=== PATIENT | female | born 1980 | race Caucasian/White ===

== ENCOUNTER 2017-02-26 10:56 | Emergency (ER) | payer SELFPAY ==
[2017-02-26 11:06] VITALS: BP 136/78
[2017-02-26] MEDS ORDERED: PENICILLIN V POTASSIUM 500 MG TABLET PO ONE (11:17)
[2017-02-26] MEDS ORDERED: LIDOCAINE 2% VISCOUS SOLN 20 ML UDCUP PO ONE (11:17)
[2017-02-26] MEDS ORDERED: IBUPROFEN 600 MG TABLET PO ONE (11:17)
--- NOTE | 2017-02-26 11:23 | ER Document Report ---
ED Oral Problem - General Chief Complaint: Toothache Stated Complaint: TOOTH PAIN Time Seen by Provider: 02/26/17 11:10 Mode of Arrival: Ambulatory Information source: Patient Notes: 36-year-old female presents to ED for complaint of dental pain and swelling for times a week got worse over the last 2 days. She does have a tooth #11 that appears to have had the Fall off. The gum is very red and swollen and inflamed. Will treat with Penicillin VK ibuprofen and viscous lidocaine for pain. TRAVEL OUTSIDE OF THE [place] IN LAST 30 DAYS: No - HPI Patient complains to provider of: Toothache Onset: Other Onset: Gradual - 2 weeks worse the last 2 days Quality of pain: Sharp, Throbbing Severity: Moderate Pain Level: 4 Associated symptoms: Toothache Worsened by: Cold Relieved by: Nothing Similar symptoms previously: Yes Recently seen / treated by doctor/dentist: No - Related Data Allergies/Adverse Reactions: No Known Allergies Allergy (Verified 02/26/17 10:56) Past Medical History - General Information source: Patient - Social History Smoking Status: Current Every Day Smoker Cigarette use (# per day): Yes - One half pack per day Chew tobacco use (# tins/day): No Smoking Education Provided: Yes - Less than 2 minutes Frequency of alcohol use: Rare Drug Abuse: None 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 denies: Arthritis, CAD, COPD, CVA, DM, Hyperlipidemia, Hypertension, Thyroid Disfunction Patient has suicidal ideation: No Patient has homicidal ideation: No - Past Medical History Cardiac Medical History: Reports: Hx Coronary Artery Disease Pulmonary Medical History: Reports: None EENT Medical History: Reports: None Neurological Medical History: Reports: None Endocrine Medical History: Reports: None Renal/ Medical History: Reports: None Malignancy Medical History: Reports: None GI Medical History: Reports: None Musculoskeltal Medical History: Reports Hx Musculoskeletal Trauma Skin Medical History: Reports None Psychiatric Medical History: Reports: Hx Attention Deficit Hyperactivity Disorder, Hx Bipolar Disorder Traumatic Medical History: Reports: Hx Fractures - Right wrist, Hx Traumatic Brain Injury Past Surgical History: Reports: Hx Neurologic Surgery - Brain surgery due to traumatic brain injury, Hx Orthopedic Surgery - ORIF right wrist - Immunizations Immunizations up to date: Yes Hx Diphtheria, Pertussis, Tetanus Vaccination: Yes Review of Systems - Review of Systems Constitutional: No symptoms reported EENT: Dental problem Cardiovascular: No symptoms reported Respiratory: No symptoms reported Gastrointestinal: No symptoms reported Genitourinary: No symptoms reported Female Genitourinary: No symptoms reported Musculoskeletal: No symptoms reported Skin: No symptoms reported Hematologic/Lymphatic: No symptoms reported Neurological/Psychological: No symptoms reported -: Yes All other systems reviewed and negative Physical Exam - Vital signs Vitals: Temp Pulse Resp BP Pulse Ox 97.9 F 98 16 136/78 H 99 02/26/17 11:05 02/26/17 11:05 02/26/17 11:05 02/26/17 11:05 02/26/17 11:05 Interpretation: Normal - General General appearance: Appears well, Alert - HEENT Head: Normocephalic, Atraumatic Eyes: Normal Pupils: PERRL Ears: Normal External canal: Normal Tympanic membrane: Normal Sinus: Normal Nasal: Normal Mouth/Lips: Caries Mucous membranes: Normal Teeth diagram: 1 - Tooth #11 appears to have the Fallen off and now has an exposed post with redness inflammation and pain surrounding it. Pharynx: Normal Neck: Anterior cervical chain - Respiratory Respiratory status: No respiratory distress Chest status: Nontender Breath sounds: Normal Chest palpation: Normal - Cardiovascular Rhythm: Regular Heart sounds: Normal auscultation Murmur: No - Abdominal Inspection: Normal Distension: No distension Bowel sounds: Normal Tenderness: Nontender Organomegaly: No organomegaly - Back Back: Normal, Nontender - Extremities General upper extremity: Normal inspection, Nontender, Normal color, Normal ROM , Normal temperature General lower extremity: Normal inspection, Nontender, Normal color, Normal ROM , Normal temperature, Normal weight bearing. No: Kai's sign - Neurological Neuro grossly intact: Yes Cognition: Normal Orientation: AAOx4 Yaya Coma Scale Eye Opening: Spontaneous Yaya Coma Scale Verbal: Oriented Yaya Coma Scale Motor: Obeys Commands [place] Coma Scale Total: 15 Speech: Normal Motor strength normal: LUE, RUE, LLE, RLE Sensory: Normal - Psychological Associated symptoms: Normal affect, Normal mood - Skin Skin Temperature: Warm Skin Moisture: Dry Skin Color: Normal Course - Re-evaluation Re-evalutation: 02/26/17 11:32 Patient treated with Penicillin VK lidocaine and ibuprofen. Sent home with prescription for Penicillin VK. And instructions to follow-up with primary doctor and dental clinic - Vital Signs Vital signs: Temp Pulse Resp BP Pulse Ox 97.9 F 98 16 136/78 H 99 02/26/17 11:05 02/26/17 11:05 02/26/17 11:05 02/26/17 11:05 02/26/17 11:05 Discharge - Discharge Clinical Impression: Pain due to dental caries Condition: Stable Disposition: HOME, SELF-CARE Additional Instructions: TOOTHACHE: Your pain is due to dental decay. The tooth must be repaired in order for you to feel better. You will, therefore, be referred to a dentist. We do not have dentists on the staff at [facility]. Severe swelling or drainage around a tooth usually means a dental abscess. This also requires evaluation and treatment by the dentist, but antibiotics may be prescribed while awaiting dental treatment. You should be rechecked immediately if you develop major swelling of the face, increasing pain, a lump in the jaw or gums, headache, difficulty swallowing, or fever. PENICILLIN V K: You have been given a prescription for Penicillin VK. Your physician has determined that this is the best antibiotic for your condition. Pen VK can be taken with meals, however more of the antibiotic gets into the bloodstream if it's taken on an empty stomach. Penicillin usually has no side effects. However, allergy to penicillins is common. If you have had an allergic reaction to any drug of the penicillin family, you should never take any other penicillin. Notify your doctor at once if you develop hives, itching, swelling, faintness, or shortness of breath. FOLLOW-UP CARE: You have been referred for follow-up care to the dentists listed below. Call the dentists office for an appointment as you were instructed or within the next two days. If you experience worsening or a significant change in your symptoms, notify the physician immediately or return to the Emergency Department at any time for re-evaluation. [facility] [address] [place], [place] [phone] not open until mar 17 [facility] [address] [place] [address] [facility] [address] [facility]ically [facility] [address] [facility] [email or web address] [address] [place] [address] Friday- 8:00am to 5:00 pm Will see patients from other [facility]. Charges based on income and family size and accepts Medicare, Medicaid, and Insurances Will pull molars [facility] [id number] Hours of Operation 8:00 am - 4:30 pm weekdays The following dental offices accept Medicaid: [facility] Dr. Guerra Dr. aJffe Dr. Camarena Dr. Kwon Marquez Hubbard Lutsavage, and [facility] Dr. Waldrop ([place]) Dr. Ren ([place]) [facility] Drs. Blackwood and Rashaun ([place]) Dr. Givens ([place]) [facility] Dr. Gallegos ([place]) Drs. Preston and ([place]) Medicaid Care Line Prescriptions: Penicillin V Potassium [Penicillin Vk 500 mg Tablet] 500 mg PO BID #20 tablet Forms: Elevated Blood Pressure, Smoking Cessation Education
== END 2017-02-26 11:34 | disposition home or self-care (01) ==
LOC: ER 10:56
DX: K02.9 Dental caries, unspecified (principal); K05.10 Chronic gingivitis, plaque induced; K08.89 Other specified disorders of teeth and supporting structures; I25.10 Atherosclerotic heart disease of native coronary artery without angina pectoris; F17.210 Nicotine dependence, cigarettes, uncomplicated; Z71.6 Tobacco abuse counseling
CPT/HCPCS: 99282; J3490

== ENCOUNTER 2017-07-27 22:04 | Emergency (ER) | payer SELFPAY ==
--- NOTE | 2017-07-27 23:33 | RADIOLOGY REPORT (SQ) ---
EXAM DESCRIPTION: TIBIA FIBULA RIGHT COMPLETED DATE/TIME: 07/27/2017 11:03 pm REASON FOR STUDY: FALL WITH INJURY COMPARISON: None. NUMBER OF VIEWS: Two views. TECHNIQUE: Two radiographic images acquired of the right tibia and fibula to include the knee and an kle in at least one projection. LIMITATIONS: None. FINDINGS: MINERALIZATION: Normal. BONES: Nondisplaced right medial malleolar fracture. No dislocation. No worrisome bone lesions. SOFT TISSUES: No radiopaque foreign body. OTHER: No other significant finding. IMPRESSION: Nondisplaced right medial malleolar fracture. TECHNICAL DOCUMENTATION: JOB ID: [id number] [place]-72 2010 [employer]- All Rights Reserved Reading location - IP/workstation name: [email or web address]
--- NOTE | 2017-07-27 23:35 | RADIOLOGY REPORT (SQ) ---
EXAM DESCRIPTION: FOOT RIGHT COMPLETE COMPLETED DATE/TIME: 07/27/2017 11:03 pm REASON FOR STUDY: FALL WITH INJURY COMPARISON: None. NUMBER OF VIEWS: Three views. TECHNIQUE: AP, lateral and oblique radiographic images acquired of the right foot. LIMITATIONS: None. FINDINGS: MINERALIZATION: Normal. BONES: Nondisplaced right medial malleolar fracture. No other fracture or dislocation. No worrisome bone lesions. JOINTS: No effusions. SOFT TISSUES: Mild soft tissue swelling. No foreign body. OTHER: No other significant finding. IMPRESSION: Nondisplaced right medial malleolar fracture. TECHNICAL DOCUMENTATION: JOB ID: [id number] [place]-72 2010 [employer]- All Rights Reserved Reading location - IP/workstation name: [email or web address]
[2017-07-27] MEDS ORDERED: HYDROCODONE/ACETAMINOPHEN 5-325 MG (6 TAB/ER DISP) PO PRN (23:55)
--- NOTE | 2017-07-28 00:02 | ER Document Report ---
ED General - General Chief Complaint: Ankle Pain Stated Complaint: RIGHT ANKLE PAIN Time Seen by Provider: 07/27/17 22:40 Mode of Arrival: Wheelchair Information source: Patient TRAVEL OUTSIDE OF THE [place] IN LAST 30 DAYS: No - HPI Notes: 37-year-old female presents to the emergency department with report that 3 days ago she fell down her steps injuring her right ankle and foot and presents now with complaint pain and swelling with difficulty bearing weight. The patient denies any numbness or paresthesia. She reports no head injury or neck pain or back pain. She denies any other musculoskeletal complaint or injury. - Related Data Allergies/Adverse Reactions: No Known Allergies Allergy (Verified 07/27/17 22:16) Past Medical History - General Information source: Patient - Social History Smoking Status: Current Every Day Smoker Frequency of alcohol use: Occasional Drug Abuse: None Lives with: Friend Family History: Malignancy. denies: Arthritis, CAD, COPD, CVA, DM, Hyperlipidemia, Hypertension, Thyroid Disfunction Patient has suicidal ideation: No Patient has homicidal ideation: No - Past Medical History Cardiac Medical History: Reports: Hx Coronary Artery Disease Renal/ Medical History: Denies: Hx Peritoneal Dialysis Musculoskeltal Medical History: Reports Hx Musculoskeletal Trauma Psychiatric Medical History: Reports: Hx Attention Deficit Hyperactivity Disorder, Hx Bipolar Disorder Traumatic Medical History: Reports: Hx Fractures - Right wrist, Hx Traumatic Brain Injury Past Surgical History: Reports: Hx Neurologic Surgery - Brain surgery due to traumatic brain injury, Hx Orthopedic Surgery - ORIF right wrist - Immunizations Immunizations up to date: Yes Hx Diphtheria, Pertussis, Tetanus Vaccination: Yes Review of Systems - Review of Systems Notes: REVIEW OF SYSTEMS: CONSTITUTIONAL : Denies fever, chills, or sweats. Denies recent illness. EENT: Denies eye, ear, throat, or mouth pain or symptoms. Denies nasal or sinus congestion or discharge. Denies throat, tongue, or mouth swelling or difficulty swallowing. CARDIOVASCULAR: Denies chest pain. Denies palpitations or racing or irregular heart beat. Denies ankle edema. RESPIRATORY: Denies cough, cold, or chest congestion. Denies shortness of breath, difficulty breathing, or wheezing. GASTROINTESTINAL: Denies abdominal pain or distention. Denies nausea, vomiting , or diarrhea. Denies blood in vomitus, stools, or per rectum. Denies black, tarry stools. Denies constipation. GENITOURINARY: Denies difficulty urinating, painful urination, burning, frequency, blood in urine, or discharge. FEMALE GENITOURINARY: Denies vaginal bleeding, heavy or abnormal periods, irregular periods. Denies vaginal discharge or odor. MUSCULOSKELETAL: Denies back or neck pain or stiffness. SKIN: Denies rash, lesions or sores. HEMATOLOGIC : Denies easy bruising or bleeding. LYMPHATIC: Denies swollen, enlarged glands. NEUROLOGICAL: Denies confusion or altered mental status. Denies passing out or loss of consciousness. Denies dizziness or lightheadedness. Denies headache. Denies weakness or paralysis or loss of use of either side. Denies problems with gait or speech. Denies sensory loss, numbness, or tingling. Denies seizures. PSYCHIATRIC: Denies anxiety or stress. Denies depression, suicidal ideation, or homicidal ideation. ALL OTHER SYSTEMS REVIEWED AND NEGATIVE. Dictation was performed using 8hands voice recognition software Physical Exam - Vital signs Vitals: Temp Pulse Resp BP Pulse Ox 97.8 F 88 18 130/71 H 99 07/27/17 22:30 07/27/17 22:30 07/27/17 22:30 07/27/17 22:30 07/27/17 22:30 - Notes Notes: PHYSICAL EXAMINATION: GENERAL: Well-appearing, well-nourished and in no acute distress. HEAD: Atraumatic, normocephalic. EYES: Pupils equal round and reactive to light, extraocular movements intact, conjunctiva are normal. ENT: Nares patent, oropharynx clear without exudates. Moist mucous membranes. NECK: Normal range of motion, supple without lymphadenopathy LUNGS: Breath sounds clear to auscultation bilaterally and equal. No wheezes rales or rhonchi. HEART: Regular rate and rhythm without murmurs ABDOMEN: Soft, nontender, nondistended abdomen. No guarding, no rebound. No masses appreciated. Female : deferred Musculoskeletal: Pain over the right mid tib-fib region extending down to the right foot with contusion and bruising noted over the medial malleolus and to the medial midfoot region. No gross crepitance or bony deformity. The patient has no proximal erythema or adenopathy. The knee is nonfocal. The patient distally has good sensation and capillary refill and pulses. NEUROLOGICAL: Cranial nerves grossly intact. Normal speech, normal gait. Normal sensory, motor exams PSYCH: Normal mood, normal affect. SKIN: Warm, Dry, normal turgor, no rashes or lesions noted. Course - Re-evaluation Re-evalutation: 07/28/17 00:00 X-ray showed a minimally displaced medial malleolus fracture. No other acute injury noted. Patient was advised she needed to follow-up with orthopedics tomorrow and that she may need a surgical intervention. Pt was given R posterior and stirrup splint and crutches. Pt neurovasc intact following splint placement. 07/28/17 00:18 - Vital Signs Vital signs: Temp Pulse Resp BP Pulse Ox 97.8 F 88 18 130/71 H 99 07/27/17 22:30 07/27/17 22:30 07/27/17 22:30 07/27/17 22:30 07/27/17 22:30 Discharge - Discharge Clinical Impression: Accidental fall Qualifiers: Encounter type: initial encounter Qualified Code(s): W19.XXXA - Unspecified fall, initial encounter Ankle fracture, right Qualifiers: Encounter type: initial encounter Fracture type: closed Qualified Code(s): S82.891A - Other fracture of right lower leg, initial encounter for closed fracture Condition: Stable Disposition: HOME, SELF-CARE Instructions: Ankle Stirrup Splint ([facility]) Additional Instructions: You have fracture the medial malleolus of the ankle, corresponding to the distal tibia. You need to follow-up with orthopedics tomorrow for evaluation. Keep the leg elevated. Prescriptions: Hydrocodone/Acetaminophen [Davey 5-325 Tablet] 1 each PO Q4HP PRN #25 tablet PRN Reason: Referrals: RUDY TIERNEY DO [ACTIVE STAFF] - 07/28/17
[2017-07-28 00:36] VITALS: BP 127/71
== END 2017-07-28 00:34 | disposition home or self-care (01) ==
LOC: ER 22:04
DX: S82.891A Other fracture of right lower leg, initial encounter for closed fracture (principal); M25.571 Pain in right ankle and joints of right foot; M79.671 Pain in right foot; W10.9XXA Fall (on) (from) unspecified stairs and steps, initial encounter; F17.200 Nicotine dependence, unspecified, uncomplicated; I25.10 Atherosclerotic heart disease of native coronary artery without angina pectoris
CPT/HCPCS: 99283

== ENCOUNTER → 2018-07-15 | Outpatient (CLI) | payer SELFPAY ==
--- NOTE | 2018-07-15 14:52 | RADIOLOGY REPORT (SQ) ---
EXAM DESCRIPTION: U/S OB 14+ TRNABD 1GES W/O DOP COMPLETED DATE/TIME: 07/15/2018 2:10 pm REASON FOR STUDY: ENCTR FOR SUPERVISION OF OTHER NORMAL 2ND TRIMESTER (Z34.82) Z34.82 ENC OUNTER FOR SUPRVSN OF NORMAL , SECOND TRI COMPARISON: None. TECHNIQUE: Static and Dynamic grayscale imaging performed of gravid uterus using transabdominal appr oach. Additional selected color Doppler and spectral images recorded. All stored on PACS. LIMITATIONS: None. FINDINGS: FETUSES SEEN:1 EGA: 24 weeks 0 days Calculated using BPD,FL,HC,AC documented on images. ROSARIO: 11/04/2018 LVP: 10.2 cm PLACENTA: Posterior. Low lying placenta with tip of the placenta 9 mm from cervix. PRESENTATION: Vertex ANATOMY: HEART RATE: 144 beats per minute. FOUR CHAMBER HEART: Visualized. THREE VESSEL CORD: Yes. CORD INSERTION: Visualized. KIDNEYS AND BLADDER: Visualized. Appear normal. STOMACH: Visualized. Appears normal. SPINE: Normal as visualized. BRAIN AND LATERAL VENTRICLES: Visualized. Appear normal. OTHER: No other significant finding. MATERNAL ADNEXA: Nonvisualized ovaries. CERVICAL LENGTH: 3.7 Closed. OTHER: No other significant finding. IMPRESSION: 1. Living intrauterine with estimated gestational age of 24 weeks. 2. Low-lying placenta with the placenta measuring 9 mm from the cervical os. 3. LVP of 10.2 cm suggestive of polyhydramnios. Consider follow-up TO when feasible. 4. Volume no additional visualized anomalies. Trimester of : Second trimester - 13 weeks 1 day to 27 weeks 6 days. TECHNICAL DOCUMENTATION: JOB ID: [id number] [email or web address]- All Rights Reserved Reading location - IP/workstation name: [email or web address]
== END ==
LOC: RAD 12:50
PROVIDERS: ATTEND Midwife
DX: Z34.82 Encounter for supervision of other normal pregnancy, second trimester (principal)
CPT/HCPCS: 76805

== ENCOUNTER 2018-10-21 04:04 | Outpatient (CLI) | payer MEDICAID ==
[2018-10-21 04:36] LABS: APPEARANCE,URINE CLEAR; BILIRUBIN,URINE NEGATIVE (NEGATIVE); COLOR,URINE YELLOW; GLUCOSE, URINE NEGATIVE (NEGATIVE); KETONES,URINE NEGATIVE (NEGATIVE); LEUKOCYTE ESTERASE,URINE TRACE (NEGATIVE); NITRITE,URINE NEGATIVE (NEGATIVE); PROTEIN,URINE NEGATIVE (NEGATIVE); UROBILINOGEN,URINE NEGATIVE mg/dL (<2.0)
[2018-10-21 04:54] LABS: URINE BARBITURATES SCREEN NEGATIVE; URINE BENZODIAZEPINES SCREEN NEGATIVE; URINE COCAINE SCREEN NEGATIVE; URINE MARIJUANA (THC) SCREEN NEGATIVE; URINE METHADONE SCREEN NEGATIVE; URINE PHENCYCLIDINE SCREEN NEGATIVE
[2018-10-21 04:56] LABS: URINE AMPHETAMINES SCREEN UNCONFIRMED POSITIVE
--- NOTE | 2018-10-21 05:55 | Non Stress Test Report ---
Non Stress Test Datetime Report Generated by CPN: 10/21/2018 05:55 DEMOGRAPHIC EGA NST: 38.6 INDICATION Indication for Study: Ordered by Provider MONITORING Monitor Explained: Monitor Explained; Test Explained; Patient Verbalized Understanding Time on Monitor: 10/21/2018 04:22 Time off Monitor: 10/21/2018 05:52 NST Duration: 90 NST INTERVENTIONS NST Interventions: PO Hydration Physician Notified NST: Dr. Zayas BABY A: [id number] BABY A Movement : Present Contraction Frequency : irritibility FHR Baseline : 140 Accelerations : 15X15 Decelerations : None Variability : Moderate 6-25bpm NST Review: Meets Criteria for Reactive NST NST Review and Verified By : john Bo RN NST Results: Non-Reactive NST REPORT Report Trigger: Send Report
== END 2018-10-21 06:01 | disposition home or self-care (01) ==
LOC: LC 04:04
PROVIDERS: ATTEND Obstetrics & Gynecology
PROC: 4A1HXCZ Monitoring of Products of Conception, Cardiac Rate, External Approach (ICD-10-PCS; principal; 2018-10-21)
DX: O47.1 False labor at or after 37 completed weeks of gestation (principal); O09.523 Supervision of elderly multigravida, third trimester; F17.210 Nicotine dependence, cigarettes, uncomplicated; Z3A.38 38 weeks gestation of pregnancy
CPT/HCPCS: 59025; 36415; 81005; 80307 ×2; 84112; G0480

== ENCOUNTER 2018-11-02 21:19 | Outpatient (CLI) | payer OTHER, MEDICAID ==
[2018-11-02 22:08] LABS: APPEARANCE,URINE CLEAR; BILIRUBIN,URINE NEGATIVE (NEGATIVE); COLOR,URINE AMBER; GLUCOSE, URINE NEGATIVE (NEGATIVE); KETONES,URINE NEGATIVE (NEGATIVE); LEUKOCYTE ESTERASE,URINE SMALL (NEGATIVE); NITRITE,URINE NEGATIVE (NEGATIVE); PROTEIN,URINE 30 mg/dL (NEGATIVE); URINE SPECIFIC GRAVITY 1.027
[2018-11-02 22:36] LABS: URINE BARBITURATES SCREEN NEGATIVE; URINE BENZODIAZEPINES SCREEN NEGATIVE; URINE COCAINE SCREEN NEGATIVE; URINE MARIJUANA (THC) SCREEN NEGATIVE; URINE METHADONE SCREEN NEGATIVE; URINE PHENCYCLIDINE SCREEN NEGATIVE
--- NOTE | 2018-11-03 00:47 | Non Stress Test Report ---
Non Stress Test Datetime Report Generated by CPN: 11/03/2018 00:47 DEMOGRAPHIC EGA NST: 40.4 INDICATION Indication for Study: Ordered by Provider VITAL SIGNS Pulse - NST: 87 RESP - NST: 17 NBPSYS NST: 128 NBPDIA NST: 61 MONITORING Monitor Explained: Monitor Explained; Test Explained; Patient Verbalized Understanding Time on Monitor: 11/02/2018 21:39 Time off Monitor: 11/03/2018 00:10 NST Duration: 151 NST INTERVENTIONS NST Interventions: PO Hydration; IV Fluids Physician Notified NST: Dr. Zayas BABY A: [id number] BABY A Movement : Present Contraction Frequency : 5-7 FHR Baseline : 140 Accelerations : 15X15 Decelerations : None Variability : Moderate 6-25bpm NST Review: Meets Criteria for Reactive NST NST Review and Verified By : Arash Cisse RN NST Results: Reactive NST REPORT Report Trigger: Send Report
== END 2018-11-03 00:25 | disposition home or self-care (01) ==
LOC: LC 21:19
PROVIDERS: ATTEND Obstetrics & Gynecology
PROC: 4A1HXCZ Monitoring of Products of Conception, Cardiac Rate, External Approach (ICD-10-PCS; principal; 2018-11-02)
DX: O47.1 False labor at or after 37 completed weeks of gestation (principal); O48.0 Post-term pregnancy; O99.333 Smoking (tobacco) complicating pregnancy, third trimester; F17.210 Nicotine dependence, cigarettes, uncomplicated; O09.523 Supervision of elderly multigravida, third trimester; Z3A.40 40 weeks gestation of pregnancy
CPT/HCPCS: 59025; 36415; 81005; 80307 ×2; G0480

== ENCOUNTER 2018-11-04 06:02 | Outpatient (CLI) | payer OTHER, MEDICAID ==
--- NOTE | 2018-11-04 07:44 | Non Stress Test Report ---
Non Stress Test Datetime Report Generated by CPN: 11/04/2018 07:44 DEMOGRAPHIC EGA NST: 40.6 INDICATION Indication for Study: Ordered by Provider MONITORING Monitor Explained: Monitor Explained; Test Explained; Patient Verbalized Understanding Time on Monitor: 11/04/2018 06:50 Time off Monitor: 11/04/2018 07:39 NST Duration: 49 NST INTERVENTIONS NST Interventions: PO Hydration Physician Notified NST: Dr. Grimaldo BABY A: [id number] BABY A Movement : Present Contraction Frequency : Irreg FHR Baseline : 135 Accelerations : 15X15 Variability : Moderate 6-25bpm NST Review: Meets Criteria for Reactive NST NST Review and Verified By : Vargas Cisse, RN NST Results: Reactive NST REPORT Report Trigger: Send Report
[2018-11-04 08:07] LABS: APPEARANCE,URINE CLEAR; BILIRUBIN,URINE NEGATIVE (NEGATIVE); COLOR,URINE YELLOW; GLUCOSE, URINE NEGATIVE (NEGATIVE); KETONES,URINE NEGATIVE (NEGATIVE); LEUKOCYTE ESTERASE,URINE NEGATIVE (NEGATIVE); NITRITE,URINE NEGATIVE (NEGATIVE); PROTEIN,URINE NEGATIVE (NEGATIVE); URINE SPECIFIC GRAVITY 1.015
[2018-11-04 08:26] LABS: URINE BARBITURATES SCREEN NEGATIVE; URINE BENZODIAZEPINES SCREEN NEGATIVE; URINE COCAINE SCREEN NEGATIVE; URINE MARIJUANA (THC) SCREEN NEGATIVE; URINE METHADONE SCREEN NEGATIVE; URINE PHENCYCLIDINE SCREEN NEGATIVE
[2018-11-04 08:34] LABS: URINE AMPHETAMINES SCREEN UNCONFIRMED POSITIVE
== END 2018-11-04 07:58 | disposition home or self-care (01) ==
LOC: LC 06:02
PROVIDERS: ATTEND Student in an Organized Health Care Education/Training Program
PROC: 4A1HXCZ Monitoring of Products of Conception, Cardiac Rate, External Approach (ICD-10-PCS; principal; 2018-11-04)
DX: O47.1 False labor at or after 37 completed weeks of gestation (principal); O09.523 Supervision of elderly multigravida, third trimester; O48.0 Post-term pregnancy; O99.333 Smoking (tobacco) complicating pregnancy, third trimester; F17.210 Nicotine dependence, cigarettes, uncomplicated; Z3A.40 40 weeks gestation of pregnancy
CPT/HCPCS: 59025; 80307; 81005

== ENCOUNTER 2018-11-05 06:34 | Inpatient (IN) | payer OTHER, MEDICAID ==
[2018-11-05] MEDS ORDERED: PENICILLIN G-K 5 MILLION UNIT VIAL ONE ×2 (06:57→13:26)
[2018-11-05] MEDS ORDERED: OXYTOCIN/NORMAL SALINE 20 UNIT/1,000 ML RTUINJ ONE ×2 (07:01→16:17)
[2018-11-05] MEDS ORDERED: OXYTOCIN 10 UNIT/ML VIAL ONE (07:17)
[2018-11-05] MEDS ORDERED: MISOPROSTOL 0.2 MG TABLET ONE (07:17)
[2018-11-05] MEDS ORDERED: LIDOCAINE 1% INJ-PF (10 MG/ML) 30 ML SDV ONE (07:18)
[2018-11-05] MEDS ORDERED: OXYTOCIN/NORMAL SALINE 20 UNIT/1,000 ML RTUINJ IV PRN ×2 (07:20→15:16)
[2018-11-05] MEDS ORDERED: RINGERS SOLUTION,LACTATED 300 ML IV ONE (07:20)
[2018-11-05] MEDS ORDERED: PENICILLIN G POTASSIUM 5,000,000 UNIT in DEXTROSE 5%-WATER 100 ML IV ONE (07:21)
[2018-11-05 07:28] LABS: ABSOLUTE EOSINOPHILS # (AUTO) 0.1 10^3/uL (0.0-0.6); ABSOLUTE LYMPHOCYTES (AUTO) 2.8 10^3/uL (0.5-4.7); ABSOLUTE MONOCYTES (AUTO) 0.6 10^3/uL (0.1-1.4); ABSOLUTE NEUT (AUTO) 6.4 10^3/uL (1.7-8.2); BASOPHILS % (AUTO) 0.2 % (0-2); HEMOGLOBIN 10.9 g/dL (12.0-15.5); MEAN CORPUSCULAR HEMOGLOBIN 30.7 pg (27.0-33.4); MEAN CORPUSCULAR HGB CONC 34.2 g/dL (32.0-36.0); MEAN CORPUSCULAR VOLUME 90 fl (80-97); MONOCYTES % (AUTO) 5.8 % (3-13); PLATELET COUNT 131 10^3/uL (150-450); RED BLOOD COUNT 3.55 10^6/uL (3.72-5.28); RED CELL DISTRIBUTION WIDTH 14.7 % (11.5-14.0); TOTAL CELLS COUNTED % (AUTO) 100 %; WHITE BLOOD COUNT 9.9 10^3/uL (4.0-10.5)
[2018-11-05] MEDS: RINGERS SOLUTION,LACTATED 1,000 ML IV PRN ×2 (07:39→12:58)
[2018-11-05 08:02] LABS: APPEARANCE,URINE CLOUDY; BILIRUBIN,URINE NEGATIVE (NEGATIVE); COLOR,URINE YELLOW; GLUCOSE, URINE NEGATIVE (NEGATIVE); KETONES,URINE NEGATIVE (NEGATIVE); LEUKOCYTE ESTERASE,URINE LARGE (NEGATIVE); NITRITE,URINE NEGATIVE (NEGATIVE); PROTEIN,URINE NEGATIVE (NEGATIVE); URINE SPECIFIC GRAVITY 1.008; UROBILINOGEN,URINE NEGATIVE mg/dL (<2.0)
[2018-11-05 08:17] LABS: URINE AMPHETAMINES SCREEN NEGATIVE; URINE BARBITURATES SCREEN NEGATIVE; URINE BENZODIAZEPINES SCREEN NEGATIVE; URINE COCAINE SCREEN NEGATIVE; URINE MARIJUANA (THC) SCREEN NEGATIVE; URINE METHADONE SCREEN NEGATIVE; URINE PHENCYCLIDINE SCREEN NEGATIVE
[2018-11-05] MEDS ORDERED: PENICILLIN G POTASSIUM 2,500,000 UNIT in DEXTROSE 5%-WATER 50 ML IV SCH (11:21)
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
[2018-11-05] MEDS: PENICILLIN G-K 5 MILLION UNIT VIAL IV SCH ×2 (13:31→17:10)
[2018-11-05] MEDS ORDERED: FENTANYL CITRATE INJ/PF 100 MCG/2 ML AMPUL ONE (13:34)
[2018-11-05] MEDS ORDERED: PHENYLEPHRINE HCL INJ/PF 10 MG/1 ML SDV ONE (13:34)
[2018-11-05] MEDS ORDERED: EPHEDRINE SULFATE INJ 50 MG/1 ML AMPULE ONE (13:35)
[2018-11-05] MEDS ORDERED: BUPIVACAINE HCL 0.25 % INJ/PF (2.5 MG/1 ML) 30 ML VIAL ONE (13:35)
[2018-11-05] MEDS ORDERED: FENTANYL/BUPIVACAINE/NS/PF 300 MCG/150 ML RTUINJ EPI ONE (13:35)
[2018-11-05] MEDS ORDERED: MISOPROSTOL 0.1 MG TABLET PR ONE (15:15)
[2018-11-05] MEDS ORDERED: DIBUCAINE 1% OINTMENT 56 GM TP PRN (15:16)
[2018-11-05] MEDS ORDERED: ZOLPIDEM TARTRATE 5 MG TABLET PO PRN (15:16)
[2018-11-05] MEDS ORDERED: ACETAMINOPHEN 650 MG SUPP.RECT PR PRN (15:16)
[2018-11-05] MEDS ORDERED: GLYCERIN/WITCH HAZEL LEAF 1 EACH MED..WIPE TP PRN (15:16)
[2018-11-05] MEDS ORDERED: PROMETHAZINE HCL 25 MG SUPP.RECT PR PRN (15:16)
[2018-11-05] MEDS ORDERED: BENZOCAINE/MENTHOL AEROSOL SPRAY 56 ML TOP PRN (15:16)
[2018-11-05] MEDS ORDERED: MAGNESIUM HYDROXIDE SUSP 30 ML UDCUP PO PRN (15:16)
[2018-11-05] MEDS ORDERED: MEASLES,MUMPS&RUBELLA VACC/PF 0.5 ML VIAL SUBCUT PRN (15:16)
[2018-11-05] MEDS ORDERED: DIPH/PERTUSS(ACELL)/TETANUS VAC/PF 0.5 ML SYR (>=10YO) IM PRN (15:16)
[2018-11-05] MEDS ORDERED: PROMETHAZINE HCL INJ 25 MG/1 ML VIAL IV PRN (15:16)
[2018-11-05] MEDS ORDERED: NA PHOS,M-B/NA PHOS,DI-BA (ADULT) 133 ML ENEMA PR PRN (15:16)
[2018-11-05] MEDS ORDERED: DIPHENHYDRAMINE HCL 25 MG CAPSULE PO PRN (15:16)
[2018-11-05] MEDS ORDERED: PROMETHAZINE HCL 25 MG TABLET PO PRN (15:16)
[2018-11-05] MEDS ORDERED: ACETAMINOPHEN WITH CODEINE #3 TABLET PO PRN ×2 (15:16)
[2018-11-05] MEDS ORDERED: PSEUDOEPHEDRINE HCL 30 MG TABLET PO PRN (15:16)
[2018-11-05] MEDS ORDERED: METHYLERGONOVINE MALEATE INJ/PF 0.2 MG/1 ML AMPULE ONE (16:03)
[2018-11-05] MEDS ORDERED: METHYLERGONOVINE MALEATE INJ/PF 0.2 MG/1 ML AMPULE IM ONE (16:12)
--- NOTE | 2018-11-05 16:12 | Progress Note ---
Provider Note Provider Note: called by RN to assess bleeding. fundus found to be 2 above U with right shift. I&O cath for 200cc urine then clots extracted from lower uterine segment. methergine IM given. fundus firm at 3 below U. awaiting QBL, plan for methergine x 24 hours and pitocin 2nd bag at 125cc/hr
[2018-11-05] MEDS ORDERED: IBUPROFEN 800 MG TABLET ONE (17:15)
[2018-11-05] MEDS: IBUPROFEN 800 MG TABLET PO SCH ×2 (17:16→21:32)
--- NOTE | 2018-11-05 18:01 | Delivery Summary ---
Del Sum A-C Datetime Report Generated by CPN: 11/05/2018 18:00 DELIVERY PERSONNEL DELIVERY PERSONNEL: [id number] Delivery Doctor:: Lynn Delgado CNM Labor and Delivery Nurse:: Rishi Whitten RNsld inclusion teacher Nurse:: Charisma Page RN Sap Pi Architect:: Tuyet Gold RN Nursery Nurse:: Nidia Ann RN Tongue And Groove Machine Setter/PROGRESSIVE DIE MAKER: Farida Echevarria CNA II Tongue And Groove Machine Setter/PROGRESSIVE DIE MAKER: Zena Marcum, ST MATERNAL INFORMATION Delivery Anesthesia: Epidural Medications After Delivery: Pitocin Bolus-Please Comment; Pitocin Drip 20 Units/1000ml NSS; Methergine 0.2mg IM; Cytotec 1000mcg Per Rectum/Vagina Meds After Delivery Comment: Pitocin 20 units in 1 L NS bolusing per order Estimated Blood Loss (ml): 200 Delivery QBL: 200 Maternal Complications: None Provider Comments: ROYER VIABLE MALE INFANT WITH RIGHT NUCHAL HAND. CORD DOUBLE CLAMPED AND CUT. SPONTANESOUS INTACT PLACENTA WITH 2VC. NO LACERATIONS. STEADY OOZE OF BLOOD, THEREFORE CYTOTEC 1000MCG GA GIVEN. MOTHER AND INFANT STABLE IN L_D#2. LABOR SUMMARY EDC: 10/29/2018 00:00 No. Babies in Womb: 1 Attempted: No Labor Anesthesia: Intrathecal LABOR INFORMATION Reason for Induction: Post Dates Complete Dilatation: 11/05/2018 14:38 Oxytocin: Induction Group B Beta Strep: positive Antibiotics # of Doses: 2 Antibiotics Time of Last Dose: 1331 Name of Antibiotic Given: PCN Steroids Given: None Reason Steroids Not Administered: Not Applicable MEMBRANES Membranes Rupture Method: Artificial Rupture of Membranes: 11/05/2018 13:17 Length of Rupture (hr): 1.65 Amniotic Fluid Color: Clear Amniotic Fluid Amount: Small Amniotic Fluid Odor: Normal STAGES OF LABOR Stage 2 hr: 0 Stage 2 min: 18 Stage 3 hr: 0 Stage 3 min: 6 VAGINAL DELIVERY Episiotomy: None Laceration #1: None Laceration Extension #1: N/A Laceration Repair: Not Applicable Sponge Count Correct: N/A Sharps Count Correct: N/A CSECTION DELIVERY Primary Indication: N/A Secondary Indication: N/A CSection Incidence: N/A Labor: N/A Elective: N/A CSection Incision: N/A BABY A INFORMATION Infant Delivery Date/Time: 11/05/2018 14:56 Method of Delivery: Vaginal Born in Route : No : N/A Forceps: N/A Vacuum Extraction: N/A Shoulder Dystocia : No PRESENTATION/POSITION BABY A Presentation: Cephalic Cephalic Presentation: Vertex Vertex Position: Right Occipital Anterior Breech Presentation: N/A PLACENTA INFORMATION BABY A Placenta Delivery Time : 11/05/2018 15:02 Placenta Method of Delivery: Spontaneous Placenta Status: Delivered SCORES BABY A Heart Rate 1 min: >100 bpm Resp Effort 1 min: Good Cry Reflex Irritability 1 min: Cough or Sneeze or Pulls Away Muscle Tone 1 min: Active Motion Color 1 min: Blue/Pale Resuscitation Effort 1 min: Tactile Stimulation SCORE 1 MIN: 8 Heart Rate 5 min: >100 bpm Resp Effort 5 min: Good Cry Reflex Irritability 5 min: Cough or Sneeze or Pulls Away Muscle Tone 5 min: Active Motion Color 5 min: Body [place], Extremities Blue Resuscitation Effort 5 min: N/A SCORE 5 MIN: 9 INFORMATION BABY A Gestational Age at Delivery: 41.0 Gestational Status: Late Term- 41- 41.6 Weeks Infant Outcome : Liveborn Infant Condition : Stable Infant Sex: Male IDENTIFICATION BABY A Verification Date/Time: 11/05/2018 15:16 ID Band Number: [id number] Mother's Name Verified: Yes Infant RN Verifying Infant: JNiebuhr,RN Additional Verifying Personnel: TMartin,RN WEIGHT/LENGTH BABY A Birthweight (gm): 3448 Infant Weight (lb): 7 Infant Weight (oz): 10 Infant Length (in): 21.00 Length (cm): 53.34 CORD INFORMATION BABY A No. Cord Vessels: 2 Nuchal Cord : N/A Nuchal Cord- Other: right nuchal hand Cord Blood Taken: Yes-For Storage (Mom's Blood type +) Infant Suction: None ASSESSMENT BABY A Complications: None Physical Findings at Delivery: Within Normal Limits Infant Respirations: Appears Normal Skin to Skin: Yes Skin to Skin Time (min): 5 Steam Box Operator/ALS Called : No Care By: Digna Ann RN Transferred To: Remains with Mother BABY B INFORMATION : N/A SIGNATURES Assignment: Froilan Pryor MD Signature: with User ID: [email or web address] : with User ID: [email or web address] : I was personally available for consultation and serving as supervising physician for the MLP.
[2018-11-05] MEDS: FERROUS SULFATE 325 MG TABLET PO SCH (21:24)
[2018-11-05] MEDS: DOCUSATE SODIUM 100 MG CAPSULE PO SCH (21:24)
[2018-11-05] MEDS ORDERED: METHYLERGONOVINE MALEATE 0.2 MG TABLET ONE (21:27)
[2018-11-05] MEDS: METHYLERGONOVINE MALEATE 0.2 MG TABLET PO SCH (21:32)
[2018-11-05] MEDS: FAMOTIDINE 20 MG TABLET PO SCH (21:32)
[2018-11-06] MEDS ORDERED: METHYLERGONOVINE MALEATE 0.2 MG TABLET ONE ×2 (00:55)
[2018-11-06] MEDS: METHYLERGONOVINE MALEATE 0.2 MG TABLET PO SCH ×4 (00:59→18:30)
[2018-11-06] MEDS: IBUPROFEN 800 MG TABLET PO SCH ×3 (05:13→22:06)
[2018-11-06 07:01] LABS: ABSOLUTE LYMPHOCYTES (AUTO) 2.6 10^3/uL (0.5-4.7); ABSOLUTE MONOCYTES (AUTO) 0.6 10^3/uL (0.1-1.4); ABSOLUTE NEUT (AUTO) 10.7 10^3/uL (1.7-8.2); BASOPHILS % (AUTO) 0.3 % (0-2); EOSINOPHILS % (AUTO) 0.2 % (0-6); HEMATOCRIT 28.8 % (36.0-47.0); HEMOGLOBIN 9.8 g/dL (12.0-15.5); LYMPHOCYTES % (AUTO) 18.3 % (13-45); MEAN CORPUSCULAR HEMOGLOBIN 30.6 pg (27.0-33.4); MEAN CORPUSCULAR HGB CONC 34.1 g/dL (32.0-36.0); MEAN CORPUSCULAR VOLUME 90 fl (80-97); MONOCYTES % (AUTO) 4.4 % (3-13); PLATELET COUNT 147 10^3/uL (150-450); RED BLOOD COUNT 3.22 10^6/uL (3.72-5.28); RED CELL DISTRIBUTION WIDTH 14.8 % (11.5-14.0); SEGMENTED NEUTROPHILS % (AUTO) 76.8 % (42-78); TOTAL CELLS COUNTED % (AUTO) 100 %
--- NOTE | 2018-11-06 08:52 | PDOC PROGRESS REPORT ---
Subjective-OB Progress Note for:: 11/06/18 Subjective: Doing well, no c/o, feeling better today, small amount of bleeding, hsb at BS, bottle feeding Physical Exam (OB) Vital Signs: Temp Pulse Resp BP Pulse Ox 97.5 F 62 14 128/57 H 100 11/06/18 07:08 11/06/18 07:08 11/06/18 07:08 11/06/18 07:08 11/06/18 07:08 Intake & Output 11/05/18 11/06/18 11/07/18 06:59 06:59 06:59 Intake Total 905 Balance 905 Weight 71.1 kg - PIH/Pre-Eclampsia Clonus: Negative Headache: Absent Epigastric Pain: No Visual Changes: No - Dressing Removed: No - Lochia Lochia Amount: Small 10-25 ml Lochia Color: Rubra/Red - Abdomen Description: Soft Hernia Present: No Fundal Description: Firm Fundal Height: u/u - u/2 Objective-Diagnostic Laboratory: 11/06/18 06:39 11/06/18 06:39 WBC 14.0 H RBC 3.22 L Hgb 9.8 L Hct 28.8 L MCV 90 MCH 30.6 MCHC 34.1 RDW 14.8 H Plt Count 147 L Seg Neutrophils % 76.8 Assessment and Plan(PN) - Assessment and Plan (1) hemorrhage Qualifiers: hemorrhage type: unspecified Qualified Code(s): O72.1 - Other immediate hemorrhage Is this a current diagnosis for this admission?: Yes (2) Two vessel umbilical cord Is this a current diagnosis for this admission?: Yes (3) Advanced maternal age in Is this a current diagnosis for this admission?: Yes (4) Group B Streptococcus carrier state affecting Is this a current diagnosis for this admission?: Yes (5) Encounter for induction of labor Is this a current diagnosis for this admission?: Yes (6) Hepatitis C Qualifiers: Viral hepatitis chronicity: unspecified Is this a current diagnosis for this admission?: Yes - Time Spent with Patient Time with patient: Less than 15 minutes Medications reviewed and adjusted accordingly: Yes - Disposition Anticipated Discharge: Home Within: within 48 hours
--- NOTE | 2018-11-06 08:56 | PDOC DISCHARGE SUMMARY ---
Final Diagnosis Discharge Date: 11/07/18 - Final Diagnosis (1) hemorrhage Is this a current diagnosis for this admission?: Yes (2) Two vessel umbilical cord Is this a current diagnosis for this admission?: Yes (3) Advanced maternal age in Is this a current diagnosis for this admission?: Yes (4) Group B Streptococcus carrier state affecting Is this a current diagnosis for this admission?: Yes (5) Encounter for induction of labor Is this a current diagnosis for this admission?: Yes (6) Hepatitis C Is this a current diagnosis for this admission?: Yes Discharge Data - Discharge Medication Prescriptions: Amoxicillin Trihydrate [Amoxil 500 mg Capsule] 500 mg PO Q8 #20 capsule Ferrous Sulfate [Feosol 325 mg Tablet] 325 mg PO BID #60 tablet Home Medications: Dextroamphetamine/Amphetamine [Adderall 10 mg Tablet] 1 tab PO DAILY 10/21/18 95/Iron Fum/Folic/Dha [ + Dha Combo Pack] 1 each PO DAILY 10/21/18 Ferrous Sulfate [Feosol 325 mg Tablet] 325 mg PO BID #60 tablet 11/06/18 Amoxicillin Trihydrate [Amoxil 500 mg Capsule] 500 mg PO Q8 #20 capsule 11/07/18 Gestational Age: 41 Reason(s) for Admission: Induction of Labor, Advanced Maternal Age, Group B Strep Positive Procedures: NST, Ultrasound Intrapartum Procedure(s): Spontaneous Vaginal Delivery Complication(s): Hemorrhage-Uterine [place] - [place] Data Baby 1 Male at 1 minute: 8 at 5 minutes: 9 Weight: 3.459 kg Home with Mother: Yes Complications: No - Diagnosis Test Laboratory: Temp Pulse Resp BP Pulse Ox 97.5 F 62 14 128/57 H 100 11/06/18 07:08 11/06/18 07:08 11/06/18 07:08 11/06/18 07:08 11/06/18 07:08 11/05/18 11/05/18 11/06/18 06:30 07:14 06:39 RBC 3.55 L 3.22 L Hgb 10.9 L 9.8 L Hct 32.0 L 28.8 L Urine Opiates Screen NEGATIVE - Discharge information/Instructions Discharge Activity: Activity As Tolerated, No Lifting Over 10 Pounds, No Lifting/Push/Pulling, Pelvic Rest Discharge Diet: As Tolerated, Regular Disposition: HOME, SELF-CARE Follow up with: [facility] in: 4, Weeks
[2018-11-06] MEDS: FERROUS SULFATE 325 MG TABLET PO SCH ×2 (10:41→18:30)
[2018-11-06] MEDS: FAMOTIDINE 20 MG TABLET PO SCH ×2 (10:41→22:06)
[2018-11-06] MEDS: PRENATAL VITAMIN W DHA CAPSULE PO SCH (10:41)
[2018-11-06] MEDS: DOCUSATE SODIUM 100 MG CAPSULE PO SCH ×2 (10:41→18:31)
[2018-11-06] MEDS: SENNOSIDES/DOCUSATE 8.6-50 MG 1 EACH TABLET PO SCH (10:41)
[2018-11-07] MEDS: IBUPROFEN 800 MG TABLET PO SCH (06:42)
--- NOTE | 2018-11-07 09:34 | PDOC PROGRESS REPORT ---
Subjective-OB Progress Note for:: 11/07/18 Subjective: Doing well, no c/o, bottle feeding, ready to go home Physical Exam (OB) Vital Signs: Temp Pulse Resp BP Pulse Ox 98.2 F 68 15 126/60 H 100 11/06/18 22:01 11/06/18 22:01 11/06/18 22:01 11/06/18 22:01 11/06/18 22:01 Intake & Output 11/06/18 11/07/18 11/08/18 06:59 06:59 06:59 Intake Total 905 Balance 905 Weight 71.1 kg Baby 1 Male 3.459 kg - PIH/Pre-Eclampsia DTR's: 1 + Clonus: Negative Headache: Absent Epigastric Pain: No Visual Changes: No - Dressing Removed: No - Lochia Lochia Amount: Scant < 10 ml Lochia Color: Rubra/Red - Abdomen Description: Soft, Round Hernia Present: No Fundal Description: Firm, Midline Fundal Height: u/u - u/2 Objective-Diagnostic Laboratory: 11/06/18 06:39 11/05/18 06:30 Clean Catch Midstream Urine Culture - Final Group B Beta Streptococcus Lactobacillus (Vaginal Denise) Assessment and Plan(PN) - Assessment and Plan (1) hemorrhage Qualifiers: hemorrhage type: unspecified Qualified Code(s): O72.1 - Other immediate hemorrhage Is this a current diagnosis for this admission?: Yes (2) Two vessel umbilical cord Is this a current diagnosis for this admission?: Yes (3) Advanced maternal age in Is this a current diagnosis for this admission?: Yes (4) Group B Streptococcus carrier state affecting Is this a current diagnosis for this admission?: Yes (5) Encounter for induction of labor Is this a current diagnosis for this admission?: Yes (6) Hepatitis C Qualifiers: Viral hepatitis chronicity: unspecified Is this a current diagnosis for this admission?: Yes - Time Spent with Patient Time with patient: Less than 15 minutes Medications reviewed and adjusted accordingly: Yes - Disposition Anticipated Discharge: Home Within: within 24 hours
[2018-11-07 09:54] VITALS: BP 130/66
[2018-11-07] MEDS ORDERED: AMOXICILLIN TRIHYDRATE 500 MG CAPSULE PO SCH (10:00)
[2018-11-07] MEDS: PRENATAL VITAMIN W DHA CAPSULE PO SCH (10:38)
[2018-11-07] MEDS: FERROUS SULFATE 325 MG TABLET PO SCH (10:39)
[2018-11-07] MEDS: SENNOSIDES/DOCUSATE 8.6-50 MG 1 EACH TABLET PO SCH (10:41)
[2018-11-07] MEDS: DOCUSATE SODIUM 100 MG CAPSULE PO SCH (10:41)
[2018-11-07] MEDS: FAMOTIDINE 20 MG TABLET PO SCH (10:41)
== END 2018-11-07 13:40 | disposition home or self-care (01) | DRG 806 ==
LOC: LR 06:34 → 2S 18:13
PROVIDERS: ADMIT Obstetrics & Gynecology; ATTEND Obstetrics & Gynecology
PROC: 10E0XZZ Delivery of Products of Conception, External Approach (ICD-10-PCS; principal; 2018-11-05)
PROC: 3E033VJ Introduction of Other Hormone into Peripheral Vein, Percutaneous Approach (ICD-10-PCS; 2018-11-05)
PROC: 10907ZC Drainage of Amniotic Fluid, Therapeutic from Products of Conception, Via Natural or Artificial Opening (ICD-10-PCS; 2018-11-05)
DX: O48.0 Post-term pregnancy (principal); O98.413 Viral hepatitis complicating pregnancy, third trimester; Z37.0 Single live birth; O72.1 Other immediate postpartum hemorrhage; O99.824 Streptococcus B carrier state complicating childbirth; B19.20 Unspecified viral hepatitis C without hepatic coma; O69.89X0 Labor and delivery complicated by other cord complications, not applicable or unspecified; O99.334 Smoking (tobacco) complicating childbirth; F17.210 Nicotine dependence, cigarettes, uncomplicated; Z79.899 Other long term (current) drug therapy; Z3A.41 41 weeks gestation of pregnancy; Z91.030 Bee allergy status; Z85.41 Personal history of malignant neoplasm of cervix uteri
CPT/HCPCS: 36415; 80307; 81005; 85025; 86592; 86850; 86900; 86901; 87086; 87088; 94760; J2210; J2370; J2540; J2590; J3010; J3490